=== PATIENT | male | born 1955 | race Caucasian/White ===

== ENCOUNTER 2021-10-05 01:04 | Outpatient (CLI) | payer MEDICARE, SELFPAY | END 2021-10-05 01:05 | disposition home or self-care (01) | LOC: INF 01:04 | PROVIDERS: PCP Internal Medicine; Visit Provider Family Medicine | DX: C91.40 Hairy cell leukemia not having achieved remission (principal); Z29.8 Encounter for other specified prophylactic measures; D84.89 Other immunodeficiencies | CPT/HCPCS: 96372; Q0220 ==

== ENCOUNTER → 2025-08-04 12:49 | Outpatient (BNVA) | payer MEDICARE, OTHER, SELFPAY | PROVIDERS: PCP Family Medicine; Referring Provider Family Medicine; Visit Provider Internal Medicine Pulmonary Disease | DX: J45.50 Severe persistent asthma, uncomplicated (principal); B44.81 Allergic bronchopulmonary aspergillosis; R91.8 Other nonspecific abnormal finding of lung field; C91.40 Hairy cell leukemia not having achieved remission | CPT/HCPCS: 99205; 36415 ==

== ENCOUNTER 2025-08-04 14:26 | Outpatient (REF) | payer MEDICARE, OTHER, SELFPAY ==
[2025-08-04 15:12] LABS: Abs Immature Grans 0.01 10^3/uL (0.0-0.06); HCT 40.0 % (40.0-50.0); HGB 13.2 g/dL (13.5-17.5); Immature Grans % 0.2 %; MCH 29.4 pg (27.0-33.0); MCHC 33.0 % (32.0-36.0); MCV 89 fL (80-95); MPV 9.9 fL (8.0-11.0); Platelet Count 130 10^3/uL (130-400); RBC 4.49 10^6/uL (4.36-5.78); RDW 14.1 % (11.8-14.1); RDW-SD 45.3 fL; WBC 4.02 10^3/uL (4.4-10.8)
== END 2025-08-04 14:27 | disposition home or self-care (01) ==
LOC: LBN 14:26
PROVIDERS: PCP Family Medicine; Visit Provider Internal Medicine Pulmonary Disease
DX: J45.50 Severe persistent asthma, uncomplicated (principal)
CPT/HCPCS: 82785; 85025; 86003

== ENCOUNTER → 2025-09-09 13:53 | Outpatient (BNVA) | payer MEDICARE, OTHER, SELFPAY | PROVIDERS: PCP Family Medicine; Referring Provider Family Medicine; Visit Provider Internal Medicine Pulmonary Disease | DX: J45.50 Severe persistent asthma, uncomplicated (principal); R91.8 Other nonspecific abnormal finding of lung field; B44.81 Allergic bronchopulmonary aspergillosis | CPT/HCPCS: 99214 ==